=== PATIENT | male | born 1960 | race Caucasian/White ===

== ENCOUNTER → 2020-05-17 | Outpatient (CLI) | payer SELFPAY ==
[~2020-05-17] MED LIST: ADVI200T PO; PROZ10CA7 PO; RANI-397 PO; WELLTAB38 PO; cpap
== END ==
LOC: M LABSMTC 09:16
PROVIDERS: ATTEND Pediatrics
DX: Z20.828 Contact with and (suspected) exposure to other viral communicable diseases (principal)